=== PATIENT | male | born 1980 | race Caucasian/White ===

== ENCOUNTER 2016-06-15 14:19 | Emergency (ER) | payer OTHER | END 2016-06-15 15:53 | disposition home or self-care (01) | LOC: ER 14:19 | DX: M54.6 Pain in thoracic spine (principal); M54.2 Cervicalgia; I10 Essential (primary) hypertension; V43.62XA Car passenger injured in collision with other type car in traffic accident, initial encounter; Y92.413 State road as the place of occurrence of the external cause; Z79.899 Other long term (current) drug therapy ==